=== PATIENT | male | born 1945 | race Two or more races ===

== ENCOUNTER 2018-05-20 14:47 | Outpatient (CLI) | payer OTHER | END 2018-05-20 14:52 | disposition home or self-care (01) | LOC: RAD 14:47 | DX: M25.561 Pain in right knee (principal) ==

== ENCOUNTER 2018-05-23 13:11 | Outpatient (CLI) | payer OTHER | END 2018-05-23 15:33 | disposition home or self-care (01) | LOC: MRI 13:11 | DX: M25.551 Pain in right hip (principal); M25.561 Pain in right knee | CPT/HCPCS: 73721 ==

== ENCOUNTER 2018-05-31 10:31 | Outpatient (CLI) | payer OTHER | END 2018-05-31 11:52 | disposition home or self-care (01) | LOC: MRI 10:31 | DX: D36.13 Benign neoplasm of peripheral nerves and autonomic nervous system of lower limb, including hip (principal) | CPT/HCPCS: 73719; A9579 ==

== ENCOUNTER 2018-11-29 10:20 | Outpatient (CLI) | payer OTHER | END 2018-11-29 17:00 | disposition home or self-care (01) | LOC: MRI 10:20 | DX: D21.21 Benign neoplasm of connective and other soft tissue of right lower limb, including hip (principal) | CPT/HCPCS: 73719; A9575 ==

== ENCOUNTER 2019-12-26 17:15 | Emergency (ER) | payer OTHER ==
[~2019-12-26] VITALS: Ht 172.7 cm; Wt 93.0 kg
[2019-12-26] MEDS ORDERED: ASPIR 8181 MG (17:38)
[2019-12-26] MEDS ORDERED: [UNRECOGNIZED DRUG - OTHER] (17:38)
[2019-12-26] MEDS ORDERED: JANUMET XR 1001 EACH (17:39)
[2019-12-26] MEDS ORDERED: COZAAR25 MG (17:40)
[2019-12-26] MEDS ORDERED: [UNRECOGNIZED DRUG - OTHER] (17:42)
== END 2019-12-26 21:23 | disposition home or self-care (01) ==
LOC: ER 17:15
DX: S80.01XA Contusion of right knee, initial encounter (principal); W22.8XXA Striking against or struck by other objects, initial encounter; Y93.89 Activity, other specified; Y92.89 Other specified places as the place of occurrence of the external cause; Y99.8 Other external cause status

== ENCOUNTER 2019-12-27 08:01 | Emergency (ER) | payer OTHER ==
[~2019-12-27] VITALS: Ht 172.7 cm; Wt 93.0 kg
[~2019-12-27 08:01] MED LIST: ASPIR 8181 MG; COZAAR25 MG; JANUMET XR 1001 EACH; [UNRECOGNIZED DRUG - OTHER]; [UNRECOGNIZED DRUG - OTHER]
== END 2019-12-27 12:00 | disposition home or self-care (01) ==
LOC: ER 08:01
DX: S80.11XD Contusion of right lower leg, subsequent encounter (principal); M79.661 Pain in right lower leg; W18.09XD Striking against other object with subsequent fall, subsequent encounter